=== PATIENT | male | born 1965 | race Caucasian/White ===

== ENCOUNTER 2022-02-11 10:07 | Outpatient (CLI) | payer OTHER, SELFPAY ==
[2022-02-11 15:22] LABS: Albumin* 4.9 g/dL (3.3-5.0); Chloride* 102 mmol/L (96-114); Potassium* 4.2 mmol/L (3.6-5.1); Sodium* 140 mmol/L (135-149)
[2022-02-11 15:24] LABS: Cholesterol* 169 mg/dL (90-199); Creatinine* 0.8 mg/dL (0.5-1.5); Estimated Glomerular Filt Rate 103 ml/min
[2022-02-11 15:25] LABS: Alanine Aminotransferase* 40 U/L (4-50); Alkaline Phosphatase* 82 U/L (40-150); Aspartate Amino Transferase* 33 U/L (12-35); Bilirubin Total* 0.7 mg/dL (0.1-1.5); Blood Urea Nitrogen* 11 mg/dL (7-30); Calcium* 9.6 mg/dL (8.4-10.6); Carbon Dioxide* 28 mmol/L (20-32); Glucose* 108 mg/dL (60-115); HDL Cholesterol* 36 mg/dL (>=40); LDL Cholesterol Calculated 112 mg/dL (<100); Total Protein* 7.5 g/dL (6.0-8.3); Triglycerides* 103 mg/dL (40-149)
[2022-02-11 15:56] LABS: PSA Screen* 0.59 ng/mL (0.10-4.00)
== END 2022-02-11 10:08 | disposition home or self-care (01) ==
PROVIDERS: PCP Physician Assistant Medical; Visit Provider Physician Assistant Medical
DX: Z00.00 Encounter for general adult medical examination without abnormal findings (principal); E78.00 Pure hypercholesterolemia, unspecified; J45.909 Unspecified asthma, uncomplicated; Z12.5 Encounter for screening for malignant neoplasm of prostate
CPT/HCPCS: 80053; 80061; 84153

== ENCOUNTER 2023-02-24 07:56 | Outpatient (CLI) | payer OTHER, SELFPAY | END 2023-02-24 07:57 | disposition home or self-care (01) | PROVIDERS: PCP Physician Assistant Medical; Visit Provider Physician Assistant Medical | DX: Z00.00 Encounter for general adult medical examination without abnormal findings (principal); E78.00 Pure hypercholesterolemia, unspecified; Z12.5 Encounter for screening for malignant neoplasm of prostate | CPT/HCPCS: 80053; 80061; 84153 ==

== ENCOUNTER 2023-03-11 08:12 | Outpatient (CLI) | payer OTHER, SELFPAY ==
--- NOTE | 2023-03-11 08:45 | CRLHL7_ITS ---
For Patients: As a result of the Century Cures Act, medical imaging exams and procedure reports are released immediately into your electronic medical record. You may view this report before your referring provider. If you have questions, please contact your health care provider. INDICATION: epigastric pain COMPARISON: none TECHNIQUE: Real time avina scale imaging and color Doppler analysis was performed of the right upper quadrant. FINDINGS: Echogenic liver noted. The liver measures 15.9 cm. Intrahepatic cyst is present measuring 1.8 x 0.9 x 1.3 cm. There is a normal appearance of the hepatic IVC and proximal abdominal aorta. There is no evidence of ascites. The gallbladder is of normal size and there is no evidence of intraluminal stones or sludge. The gallbladder wall measures 1.4 mm in thickness. The common bile duct is of normal size and measures 4 mm in diameter at the level of the moe hepatis. The pancreas appears normal. There is no evidence of a stone or hydronephrosis within the right kidney. The right kidney measures 9.6 cm in length. IMPRESSION: Diffuse hepatic steatosis. Incidental intrahepatic cyst. Normal ultrasound of the gallbladder. Dictated by Roberto Snow MD @ 03/11/2023 9:31:45 AM (Electronically Signed)
== END 2023-03-11 08:13 | disposition home or self-care (01) ==
LOC: US 08:12
PROVIDERS: PCP Physician Assistant Medical; Visit Provider Physician Assistant Medical
DX: R10.13 Epigastric pain (principal); K76.0 Fatty (change of) liver, not elsewhere classified
CPT/HCPCS: 76705

== ENCOUNTER 2023-05-27 07:55 | Outpatient (CLI) | payer OTHER, SELFPAY | END 2023-05-27 07:56 | disposition home or self-care (01) | LOC: NFLDREF 05-28 06:08 | PROVIDERS: PCP Physician Assistant Medical; Referring Provider Physician Assistant Medical; Visit Provider Physician Assistant Medical | DX: E78.00 Pure hypercholesterolemia, unspecified (principal) | CPT/HCPCS: 80053; 80061 ==

== ENCOUNTER 2024-02-16 07:35 | Outpatient (CLI) | payer OTHER, SELFPAY | END 2024-02-16 07:36 | disposition home or self-care (01) | LOC: NFLDREF 02-18 12:59 | PROVIDERS: PCP Physician Assistant Medical; Referring Provider Physician Assistant Medical; Visit Provider Physician Assistant Medical | DX: Z00.00 Encounter for general adult medical examination without abnormal findings (principal); E78.00 Pure hypercholesterolemia, unspecified; E66.9 Obesity, unspecified; Z13.9 Encounter for screening, unspecified; Z12.5 Encounter for screening for malignant neoplasm of prostate | CPT/HCPCS: 80053; 80061; 84443; G0103 ==

== ENCOUNTER 2025-02-22 08:04 | Outpatient (CLI) | payer OTHER, SELFPAY | END 2025-02-22 08:05 | disposition home or self-care (01) | LOC: NFLDREF 02-23 18:16 | PROVIDERS: PCP Physician Assistant Medical; Referring Provider Physician Assistant Medical; Visit Provider Physician Assistant Medical | DX: Z00.00 Encounter for general adult medical examination without abnormal findings (principal); E78.00 Pure hypercholesterolemia, unspecified; N52.8 Other male erectile dysfunction | CPT/HCPCS: 80053; 80061; 84443; G0103 ==